=== PATIENT | male | born 1970 | race Caucasian/White ===

== ENCOUNTER 2019-10-19 07:35 | Day surgery (SDC) | payer OTHER ==
[~2019-10-19] VITALS: Ht 167.6 cm; Wt 116.1 kg
[~2019-10-19 07:35] MED LIST: KEFLEX500 MG PO
[2019-10-19] MEDS ORDERED: LIPITOR40 MG PO (07:50)
[2019-10-19] MEDS ORDERED: COZAAR100 MG PO (07:50)
--- NOTE | 2019-10-19 09:21 | NUR ---
10/19/19 0921 Chanda Ross 0915 PATIENT ARRIVES TO PACU AWAKE, TALKING WITH STAFF, ASKING QUESTIONS APPROPRIATELY. PATIENT FALLS ASLEEP WHEN NOT STIMULATED. RESP EVEN AND UNLABORED, LIGHT SNORING WHEN SLEEPING. NC AT 3 LITERS OFF ON ARRIVAL TO PACU. ROOM AIR SATS WHEN SLEEPING LOW 86%. NC TURNED BACK ON TO 2L WITH SATS >90%. PATIENT HAS CPAP AT HOME, ENCOURAGED TO USE WHILE SLEEPING TODAY.
--- NOTE | 2019-10-19 10:37 | OR ---
[facility] [address], [place] [address] Signed DATE OF OPERATION: 10/19/2019 SURGEON: Tamiko Cagle MD PREOPERATIVE DIAGNOSES: 1. Sister with colonic polyps, age 40. 2. Brother with colonic polyps, age 42. POSTOPERATIVE DIAGNOSES: 1. Moderate external hemorrhoids. 2. Minimal internal hemorrhoids. 3. Minimal to moderate sigmoid diverticulosis. PROCEDURE: Colonoscopy without biopsy. ESTIMATED BLOOD LOSS: None. INDICATIONS: Giacomo is a 48-year-old gentleman asked to see for his initial colonoscopy. We know his sister had colonic polyps removed at age 40 and a brother had colonic polyps removed at age 42. Of course, the endoscopist asked that the entire family be checked. Giacomo tells me he has no lower GI complaints. I gave him a pamphlet in the office on colonoscopy and we looked at that together along with the risks including, but not limited to gas bloating, crampy abdominal pain, bleeding, perforation requiring surgery, and missed diagnosis. In addition, he understands polyps grow and become cancer over 8-12 years. Consequently, we would recommend he and his family come every 5 years for repeat colonoscopies. He also understands the need for IV conscious sedation. He has expressed understanding and would like to proceed. DESCRIPTION OF PROCEDURE: Giacomo was taken into our endoscopy suite and placed in the left lateral decubitus position. He was given IV sedation with 7 mg of versed and 125 mcg of fentanyl. A digital rectal exam was performed. He does have moderate circumferential external hemorrhoids. The adult colonoscope was introduced and advanced all around into the cecum under direct visualization of camera without difficulty. His prep was good. We could easily see the appendiceal orifice and ileocecal valve. The scope was slowly withdrawn. He does have diverticula in the sigmoid colon. They were minimal to moderate in size, minimal to moderate in number, and scattered about. The rectum itself Electronically Signed By: TAMIKO CAGLE MD 10/19/19 1037 PATIENT NAME: GIACOMO IVORY OPERATIVE REPORT DATE OF : 72 REPORT #: [id number] PHYSICIAN: TAMIKO CAGLE MD PCP: KANDI GAMINO MD REPORT IS CONFIDENTIAL AND NOT TO BE RELEASED WITHOUT AUTHORIZATION [facility] [address], [place] [address] Signed was unremarkable. Upon retroflexion of scope, I could see just a single internal hemorrhoid column. After this, the gas was suctioned out and the colonoscope removed. Giacomo tolerated the procedure quite well. RECOMMENDATIONS: Giacomo can follow up every 5 years for a repeat colonoscopy. Tamiko Cagle MD ALB/NAKULL /[id number] cc: MD Tamiko Paul MD Copies: TAMIKO CAGLE MD ~ Electronically Signed By: TAMIKO CAGLE MD 10/19/19 1037 PATIENT NAME: GIACOMO IVORY OPERATIVE REPORT DATE OF : 72 REPORT #: [id number] PHYSICIAN: TAMIKO CAGLE MD PCP: KANDI GAMINO MD REPORT IS CONFIDENTIAL AND NOT TO BE RELEASED WITHOUT AUTHORIZATION
== END 2019-10-19 10:20 | disposition home or self-care (01) ==
LOC: OPS 07:35 → DS 07:35 → OPS 09:00 → DS 09:00 → OPS 10:20
PROVIDERS: Colon & Rectal Surgery
PROC: 0DJD8ZZ Inspection of Lower Intestinal Tract, Via Natural or Artificial Opening Endoscopic (ICD-10-PCS; principal; 2019-10-19 09:00)
DX: Z12.11 Encounter for screening for malignant neoplasm of colon (principal); K64.8 Other hemorrhoids; K64.4 Residual hemorrhoidal skin tags; K57.30 Diverticulosis of large intestine without perforation or abscess without bleeding; I10 Essential (primary) hypertension; E11.9 Type 2 diabetes mellitus without complications; Z83.71 Family history of colonic polyps; Z79.899 Other long term (current) drug therapy
CPT/HCPCS: 99153; G0500; J2250; J3010; J7121

== ENCOUNTER 2023-12-21 20:04 | Emergency (ER) | payer OTHER ==
[~2023-12-21] VITALS: Ht 167.6 cm; Wt 107.0 kg
[~2023-12-21 20:04] MED LIST changes: +COZAAR100 MG PO; +LIPITOR20 MG PO; +METFORMIN HCL500 M2 PO; +OZEMPIC0.25 MG/02 SUB-Q
[2023-12-21] MEDS ORDERED: HYDROmorphone HCL 1 MG/ML SYR IV PRN (22:15)
[2023-12-21] MEDS ORDERED: LACTATED RINGER'S 1,000 ML IV ONE (22:15)
[2023-12-21] MEDS ORDERED: ondansetron HCL 4 MG/2 ML VIAL IV ONE (22:15)
[2023-12-21 22:16] LABS: BASOPHILS 0.4 % (0-2); EOSINOPHILS 0.2 % (0-6); HEMATOCRIT 47.2 % (35.0-50.0); HEMOGLOBIN 16.2 g/dL (12.0-18.0); MCH 29.1 (27-36); MCHC 34.2 g/dl (30-36); MONOCYTES 3.6 % (0-12); NEUTROPHILS 92.8 % (39-80); PLATELET COUNT 115 K/uL (140-440); RBC 5.56 M/ul (4.3-5.7); RDW 13.6 (10.5-15.0)
[2023-12-21] MEDS ORDERED: OZEMPIC2 MG/0.75 SUB-Q (22:30)
[2023-12-21 22:31] LABS: ALBUMIN 4.1 g/dL (3.4-5.0); ALBUMIN/GLOBULIN RATIO 1.28 (1.1-2.4); ANION GAP 13.7 (7-21); BILIRUBIN, TOTAL 0.8 ng/dL (0.2-1.0); BUN/CREATININE RATIO 12.87 (6.0-28.6); CALCIUM 9.5 mg/dL (8.5-10.1); CREATININE, SERUM 1.32 mg/dL (0.70-1.30); MAGNESIUM 1.7 mg/dL (1.8-2.4); POTASSIUM 3.7 mmol/L (3.5-5.1); PROTEIN, TOTAL 7.3 g/dL (6.4-8.2)
[2023-12-22] MEDS ORDERED: PROCHLORPERAZINE EDISYLATE 10 MG/2 ML VIAL IV ONE (00:15)
[2023-12-22] MEDS ORDERED: KETOROLAC TROMETHAMINE 30 MG/ML VIAL IV ONE (01:30)
[2023-12-22] MEDS ORDERED: CEFTRIAXONE/SODIUM CHLORIDE 2 GM/100 ML PIGGYBACK IV ONE (02:45)
[2023-12-22] MEDS ORDERED: ondansetron HCL 4 MG/2 ML VIAL IV PRN (03:00)
[2023-12-22 04:30] VITALS: BP 129/77
== END 2023-12-22 04:56 | disposition short-term general hospital (02) ==
LOC: ED 20:04
PROVIDERS: Family Medicine
DX: N13.2 Hydronephrosis with renal and ureteral calculous obstruction (principal); E11.9 Type 2 diabetes mellitus without complications; I10 Essential (primary) hypertension; Z79.899 Other long term (current) drug therapy
CPT/HCPCS: 36415; 74177; 80053; 83605; 83690; 83735; 85025; 96361; 96375; 96376; 99285-25; J0696; J0780; J1170; J1885; J2405; J7121; Q9967

== ENCOUNTER 2024-01-17 07:53 | Day surgery (SDC) | payer OTHER ==
[2024-01-11 14:35] VITALS: BP 140/91
[~2024-01-17] VITALS: Ht 167.6 cm; Wt 104.5 kg
[~2024-01-17 07:53] MED LIST changes: +CEFAZOLIN SODIUM 2 GM/20 ML SYR IV SCH; +CEFPODOXIME PR200 MG PO; +IBLOOD GLUCOSE TEST STRIP 1 EA TEST VI PRN; +LACTATED RINGER'S 1,000 ML IV SCH; +LIDOCAINE HCL 1% 5 ML SDV INJ ONE; +METFORMIN HCL500 M3 PO; +OXYBUTYNIN CHLOR5 MG PO; +OZEMPIC2 MG/0.75 SUB-Q
[2024-01-17] MEDS ORDERED: LIDOCAINE HCL 2% 5 ML SDV ONE (08:09)
[2024-01-17] MEDS ORDERED: fentaNYL citrate 100 MCG/2 ML VIAL ONE ×2 (08:09→11:19)
[2024-01-17] MEDS ORDERED: propofoL 200 MG/20 ML VIAL ONE (08:09)
[2024-01-17 08:30] VITALS: BP 135/84
--- NOTE | 2024-01-17 09:12 | NUR ---
TO BE CALLED. NO ONE WAITING. DENIES ANY NEEDS.
[2024-01-17] MEDS ORDERED: iopamidoL 30 ML VIAL ONE (09:29)
[2024-01-17] MEDS ORDERED: ondansetron HCL 4 MG/2 ML VIAL IV PRN ×2 (09:30)
[2024-01-17] MEDS ORDERED: fentaNYL citrate 50 MCG/ML SDV IV PRN (09:30)
[2024-01-17] MEDS ORDERED: IBLOOD GLUCOSE TEST STRIP 1 EA TEST VI PRN (09:30)
[2024-01-17] MEDS ORDERED: HYDROmorphone HCL 1 MG/ML SYR IV PRN (09:30)
[2024-01-17] MEDS ORDERED: KETOROLAC TROMETHAMINE 30 MG/ML VIAL IV PRN (09:30)
[2024-01-17] MEDS ORDERED: NALOXONE HCL 0.4 MG SYR IV PRN (09:30)
[2024-01-17] MEDS ORDERED: ondansetron HCL 4 MG/2 ML VIAL ONE (09:42)
[2024-01-17] MEDS ORDERED: KETOROLAC TROMETHAMINE 30 MG/ML VIAL ONE (09:42)
[2024-01-17] MEDS ORDERED: PHENAZOPYRIDINE HCL 95 MG TAB PO PRN (09:45)
[2024-01-17] MEDS ORDERED: SODIUM CHLORIDE 0.9% 20 ML IV ONE (09:50)
[2024-01-17] MEDS ORDERED: ePHEDrine sulfate 50 MG/ML AMP ONE (09:50)
[2024-01-17] MEDS ORDERED: LACTATED RINGER'S 1,000 ML IV ONE ×2 (10:26→12:20)
--- NOTE | 2024-01-17 12:53 | NUR ---
01/17/24 Marciano3 Merari Means 1230- PT ARRIVES TO PACU, SEMI PEARSON POSITION, NON REACTIVE TO STIMULUS. OPA IN PLACE, PT MAINTAINING OWN AIRWAY WITH JUST OPA. O2 AT 6L PER MASK, BREATHING EVEN AND NON LABORED. LR INFUSING TO LW IV. ABD SOFT, NON DISTENDED. STENT STRING ATTACHED TO PENIS WITH STERI STRIPS, NO BLEEDING. ALL MONITORS IN PLACE. 1232- OPA REMOVED AT THIS TIME. PT REACTIVE AND MOVING ALL EXTREMITIES. PT IS RESTLESS IN BED, FOLLOWS SOME COMMANDS. O2 REMAINS IN PLACE AT THIS TIME. 1238- PT ROLLING FROM SIDE TO SIDE EVERY COUPLE MINUTES. O2 REMOVED AT THIS TIME. WILL CONTINUE TO MONITOR. REPEAT CBG 97. PT DENIES PAIN OR NAUSEA, REPORTS HIPS ARE UNCOMFORTABLE. 1245- PT ROLLED TO BACK, KNEES ELEVATED, PT REPORTS HIPS FEELING BETTER. NO SIGNS OF DISTRESS. WILL CONTINUE TO MONITOR. DAUGHTER AT BEDSIDE TO CHECK ON PT. PT HAS ABRASION TO RIGHT ELBOW UNDER BP CUFF, NO BLEEDING, UNKNOWN IF PREVIOUS TO PACU OR WHILE PT CHANGING POSITIONS.
[2024-01-17 13:02] VITALS: BP 136/87
--- NOTE | 2024-01-17 13:05 | NUR ---
DAUGHTER IN BRIEFLY. NO ONE WAITING. WATER CRACKERS AND JELLO GIVEN. DENIES NEEDS. CALL LIGHT GIVEN.
[2024-01-17 14:07] VITALS: BP 128/84
--- NOTE | 2024-01-17 14:08 | NUR ---
HERE FOR PT.
[2024-01-17 15:00] VITALS: BP 134/69
--- NOTE | 2024-01-17 15:35 | NUR ---
1430 UP TO BR AMB WELL. VOIDS 200MLS RED URINE NO CLOTS. PT INSTRUCTED O INCREASE FLUIDS WHEN URINE VERY RED AND REST WITH FEET UP.
[2024-01-20 20:40] LABS: CALCULI MASS 121 mg (())
== END 2024-01-17 15:00 | disposition home or self-care (01) ==
LOC: DS 07:53 → OPS 07:53 → DS 09:20 → OPS 15:00
PROVIDERS: ATTEND Urology
PROC: 0TC08ZZ Extirpation of Matter from Right Kidney, Via Natural or Artificial Opening Endoscopic (ICD-10-PCS; principal; 2024-01-17 09:20)
PROC: 0T768DZ Dilation of Right Ureter with Intraluminal Device, Via Natural or Artificial Opening Endoscopic (ICD-10-PCS; 2024-01-17 09:20)
DX: N20.0 Calculus of kidney (principal); E11.9 Type 2 diabetes mellitus without complications; I10 Essential (primary) hypertension; Z79.84 Long term (current) use of oral hypoglycemic drugs; Z79.899 Other long term (current) drug therapy; Z90.49 Acquired absence of other specified parts of digestive tract
CPT/HCPCS: 00910; 74420; 82365; C1769; C2617; J0690; J1885; J2001; J2405; J2704; J3010; J7121; Q9967